=== PATIENT | male | born 1945 | race Caucasian/White ===

== ENCOUNTER → 2023-11-07 15:43 | Outpatient (CLI) | payer MEDICARE, SELFPAY ==
--- NOTE | 2023-11-07 15:45 | DI.MRI.S_ITS ---
PROCEDURE: MR ANKLE RT WO CON INDICATIONS: Achilles tendinosis of right ankle TECHNIQUE: Noncontrast sagittal T1 spin echo and T2 fast spin echo with fat saturation, axial proton density fast spin echo and T2 fast spin echo with fat saturation, coronal T1 spin echo and T2 fast spin echo with fat saturation through the ankle/hindfoot. COMPARISON: None. FINDINGS: Image quality: Excellent. Bones and joints: Mild osseous edema is seen at the posterior calcaneus near the Achilles insertion. No acute fracture. Mild degenerative spurring of the dorsal talonavicular joint. No hindfoot coalitions. No osteochondral injuries of the talar dome. Nonspecific soft tissue edema is seen surrounding the ankle. Medial structures: A small mildly edematous ossification adjacent to the medial malleolus at the origin of the deep deltoid ligament is most likely the sequela a prior partial avulsion injury/grade 2 sprain. The spring ligament complex is intact. The posterior tibialis, flexor digitorum longus, and flexor hallucis longus tendons are intact. The posterior tibial neurovascular bundle appears normal within the tarsal tunnel, without extrinsic mass effect. Lateral structures: Remote prior low-grade sprain of the anterior talofibular ligament. The calcaneofibular and posterior talofibular ligaments are intact. The anterior and posterior tibiofibular ligaments are intact. The peroneus longus and brevis tendons demonstrate moderate tendinosis and mild tenosynovitis. The sinus tarsi demonstrates normal fatty signal. Anterior structures: The tibialis anterior, extensor hallucis longus, and extensor digitorum longus tendons appear intact. Posterior and plantar structures: There is moderate to severe thickening of the Achilles tendon near its insertion onto the posterior calcaneus. Possible focal low-grade partial intrasubstance tearing at the distal insertion. No full-thickness tear is seen. A moderate amount of retrocalcaneal bursal fluid is present. No significant retro Achilles effusion. The proximal plantar fascia is thickened without surrounding edema. There is generalized fatty infiltration of the intrinsic foot musculature compatible with chronic denervation changes. IMPRESSION: 1. 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 No full-thickness Achilles tendon tear is seen. 2. Moderate retrocalcaneal bursal effusion or bursitis. Osseous edema within the adjacent posterior calcaneus may be reactive versus secondary to traction trabecular bone injury or less likely an osseous contusion. 3. Remote prior low-grade sprain of the anterior talofibular ligament. 4. Moderate peroneus brevis and longus tendinosis and mild tenosynovitis. 5. Remote prior grade 2 sprain/partial avulsion of the deep deltoid ligament. 6. Moderate chronic proximal plantar fasciitis. 7. 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 Approved by: Jorge Alberto Kyle M.D. on 11/07/2023 at 16:38
== END ==
PROVIDERS: PCP Internal Medicine; Referring Provider Orthopaedic Surgery Foot and Ankle Surgery; Visit Provider Orthopaedic Surgery Foot and Ankle Surgery
DX: S93.492A Sprain of other ligament of left ankle, initial encounter (principal); S93.421A Sprain of deltoid ligament of right ankle, initial encounter; M67.873 Other specified disorders of tendon, right ankle and foot; M72.9 Fibroblastic disorder, unspecified
CPT/HCPCS: 73721